=== PATIENT | female | born 1995 | race Two or more races ===

== ENCOUNTER 2020-09-15 07:06 | Inpatient (IN) | payer OTHER ==
[2020-09-15 08:54] VITALS: BMI 36.6
[2020-09-15] MEDS ORDERED: PROMETHAZINE HCL 25 MG/1 ML VIAL IVPUSH ONE (10:26)
[2020-09-15] MEDS ORDERED: BUTORPHANOL TARTRATE 1 MG/ML VIAL IVPB ONE (10:26)
[2020-09-15] MEDS ORDERED: DINOPROSTONE 10 MG VAGINAL SUPPOSITORY VG ONE (10:27)
[2020-09-15 10:45] LABS: BASO % 0.2 % (0-2.0); EOS % 0.4 % (0-4.5); HEMATOCRIT 33.7 % (32.4-45.2); HEMOGLOBIN 11.4 GM/dL (10.7-15.3); LYMPH % 14.9 % (8-40); MCH 28.9 pg (25.7-33.7); MCHC 33.9 g/dl (32.0-36.0); MEAN CELL VOLUME 85.1 fl (80-96); MEAN PLT VOLUME 9.5 fl (7.5-11.1); MONO % 3.9 % (3.8-10.2); NEUT % 80.6 % (42.8-82.8); PLATELET COUNT 223 K/MM3 (134-434); RBC 3.96 M/mm3 (3.60-5.2); RDW 13.1 % (11.6-15.6); WHITE BLOOD COUNT 11.2 K/mm3 (4.0-10.0)
[2020-09-15 10:57] LABS: INR 0.94 (0.83-1.09); PROTHROMBIN TIME (PATIENT) 11.6 SEC (9.7-13.0)
[2020-09-15 10:58] LABS: POTASSIUM 3.8 mmol/L (3.5-5.1)
[2020-09-15 10:59] LABS: ACTIVATED PTT 26.9 SECONDS (25.2-36.5)
[2020-09-15 11:00] LABS: BLOOD UREA NITROGEN 5.2 mg/dL (7-18); CALCIUM 8.4 mg/dL (8.5-10.1)
[2020-09-15 11:04] LABS: CREATININE 0.5 mg/dL (0.55-1.3)
[2020-09-15 11:58] LABS: HIV INTERPRETATION NEGATIVE (NEGATIVE)
[2020-09-15] MEDS: LACTATED RINGERS SOLUTION 1,000 ML IV SCH (16:22)
[2020-09-15] MEDS ORDERED: ONDANSETRON 4 MG/2 ML VIAL IVPB ONE (16:30)
[2020-09-15] MEDS ORDERED: ONDANSETRON 4 MG/2 ML VIAL ONE (16:31)
[2020-09-15] MEDS ORDERED: BUTORPHANOL TARTRATE 1 MG/ML VIAL IVPUSH ONE (22:30)
[2020-09-15] MEDS ORDERED: PROMETHAZINE HCL 25 MG/1 ML VIAL ONE (23:43)
[2020-09-16] MEDS ORDERED: OXYTOCIN 30 UNITS in 0.9% NS 30 UNIT/500 ML INFUS.BAG IVPB SCH (08:00)
[2020-09-16] MEDS ORDERED: OXYTOCIN 30 UNITS in 0.9% NS 30 UNIT/500 ML INFUS.BAG IVPB ONE (08:05)
[2020-09-16] MEDS ORDERED: BUTORPHANOL TARTRATE 2 MG/ML VIAL ONE (09:37)
[2020-09-16] MEDS ORDERED: PROMETHAZINE HCL 25 MG/1 ML VIAL ONE (09:37)
[2020-09-16] MEDS ORDERED: BUTORPHANOL TARTRATE 1 MG/ML VIAL IVPUSH ONE (09:44)
[2020-09-16] MEDS ORDERED: PROMETHAZINE HCL 25 MG/1 ML VIAL IVPUSH ONE (09:44)
[2020-09-16] MEDS: MISOPROSTOL 25 MCG TABLET (COMPOUNDED BY PHARMACY) PO SCH ×3 (09:52→17:10)
[2020-09-16] MEDS ORDERED: PCA PUMP NR ONE ×2 (13:40→19:01)
[2020-09-16] MEDS ORDERED: FENTANYL/BUPIVACAINE/NS/PF - PCEA - 50 ML DISP.SYRIN EP ONE ×3 (13:40→23:28)
[2020-09-16] MEDS ORDERED: NALOXONE HCL 0.4 MG/ML VIAL IVPUSH PRN (13:51)
[2020-09-16] MEDS ORDERED: BUPIVACAINE HCL/PF 0.25% (2.5MG/ML) 10 ML VIAL ONE (13:53)
[2020-09-16] MEDS: FENTANYL/BUPIVACAINE/NS/PF - PCEA - 50 ML DISP.SYRIN EP SCH (14:15)
[2020-09-16] MEDS: LACTATED RINGERS SOLUTION 1,000 ML IV SCH (17:10)
[2020-09-17] MEDS ORDERED: FENTANYL/BUPIVACAINE/NS/PF - PCEA - 50 ML DISP.SYRIN EP ONE ×3 (03:12→09:26)
[2020-09-17] MEDS ORDERED: BUPIVACAINE HCL/PF 0.25% (2.5MG/ML) 10 ML VIAL ONE ×2 (07:36→10:28)
[2020-09-17] MEDS ORDERED: OXYTOCIN 20 UNITS in 0.9% NS 20 UNIT/1,000 ML INFUS.BAG IV ONE (10:14)
[2020-09-17] MEDS ORDERED: OXYTOCIN 20 UNITS in 0.9% NS 40 UNIT/2,000 ML INFUS.BAG IV ONE (13:38)
[2020-09-17] MEDS ORDERED: DEXAMETHASONE SOD PHOSPHATE 4 MG/1 ML VIAL ONE (13:41)
[2020-09-17] MEDS ORDERED: morphine SULFATE/PF 0.5 MG/ML (2cc Syringe - QUVA) ONE (13:41)
[2020-09-17] MEDS ORDERED: ceFAZolin SODIUM 1 GM VIAL ONE (13:41)
[2020-09-17] MEDS ORDERED: ONDANSETRON 4 MG/2 ML VIAL ONE (13:41)
[2020-09-17] MEDS ORDERED: ONDANSETRON 4 MG/2 ML VIAL IVPUSH PRN (14:22)
[2020-09-17] MEDS ORDERED: ACETAMINOPHEN 1000 MG/100 ML VIAL (NON FORMULARY) IVPB PRN (14:23)
[2020-09-17] MEDS ORDERED: oxyCODONE HCL 5 MG TABLET PO PRN ×2 (15:41)
[2020-09-17] MEDS ORDERED: CITRIC ACID/SODIUM CITRATE 30 ML UNIT-DOSE CUP PO ONE (15:41)
[2020-09-17] MEDS ORDERED: BENZOCAINE 20% 57 GM BOTTLE TP PRN (15:41)
[2020-09-17] MEDS ORDERED: WITCH HAZEL 50% (TUCKS) 40 PAD/JAR PAD TP PRN (15:41)
[2020-09-17] MEDS ORDERED: BENZOCAINE 28 GM HEMORRHOIDAL OINTMENT TP PRN (15:41)
[2020-09-17] MEDS ORDERED: IBUPROFEN 800 MG/8 ML IJ IVPB PRN (15:41)
[2020-09-17] MEDS ORDERED: METHYLERGONOVINE MALEATE 0.2 MG/1 ML AMP IM PRN (15:41)
[2020-09-17] MEDS ORDERED: OXYTOCIN 20 UNITS in 0.9% NS 20 UNIT/1,000 ML INFUS.BAG IV SCH (15:45)
[2020-09-17 15:48] LABS: CORD HCO3 18.4 mmHg (20-29); CORD PCO2 43.6 mmHg (30-78); CORD pH 7.243 (7.14-7.44)
[2020-09-17 15:50] LABS: CORD BASE EXCESS -8.5 mmol/L (0-2); CORD HCO3 16.9 mmHg (20-29); CORD PCO2 34.9 mmHg (30-78); CORD pH 7.304 (7.14-7.44)
[2020-09-17] MEDS: FENTANYL/BUPIVACAINE/NS/PF - PCEA - 50 ML DISP.SYRIN EP SCH (22:00)
[2020-09-17] MEDS: LACTATED RINGERS SOLUTION 1,000 ML IV SCH (22:01)
[2020-09-18] MEDS: SIMETHICONE 80 MG TAB.CHEW (FP) PO PRN ×2 (05:40→21:19)
[2020-09-18] MEDS: ACETAMINOPHEN 325 MG TABLET (FP) PO PRN ×2 (05:40→21:22)
[2020-09-18] MEDS: IBUPROFEN 600 MG TABLET (FP) PO PRN ×2 (05:40→21:19)
[2020-09-18 08:46] LABS: BASO % 0.2 % (0-2.0); EOS % 0.2 % (0-4.5); HEMATOCRIT 30.4 % (32.4-45.2); HEMOGLOBIN 10.2 GM/dL (10.7-15.3); LYMPH % 7.9 % (8-40); MCH 28.9 pg (25.7-33.7); MCHC 33.6 g/dl (32.0-36.0); MONO % 5.8 % (3.8-10.2); NEUT % 85.9 % (42.8-82.8); PLATELET COUNT 205 K/MM3 (134-434); RBC 3.53 M/mm3 (3.60-5.2); RDW 13.3 % (11.6-15.6); WHITE BLOOD COUNT 17.9 K/mm3 (4.0-10.0)
[2020-09-18] MEDS: PRENATAL VITAMINS W/ FOLIC ACID TABLET (FP) PO SCH (09:53)
[2020-09-18] MEDS ORDERED: BISACODYL 10 MG SUPP.RECT RC PRN (15:41)
[2020-09-18] MEDS: SENNOSIDES/DOCUSATE COMBO (SENNA PLUS) TABLET (UD) PO PRN (21:19)
[2020-09-19] MEDS: PRENATAL VITAMINS W/ FOLIC ACID TABLET (FP) PO SCH (10:04)
[2020-09-19] MEDS: SIMETHICONE 80 MG TAB.CHEW (FP) PO PRN (21:00)
[2020-09-19] MEDS: SENNOSIDES/DOCUSATE COMBO (SENNA PLUS) TABLET (UD) PO PRN (21:01)
[2020-09-19] MEDS: ACETAMINOPHEN 325 MG TABLET (FP) PO PRN (21:01)
[2020-09-19] MEDS: IBUPROFEN 600 MG TABLET (FP) PO PRN (21:01)
[2020-09-20 09:24] VITALS: BP 120/72; PULSE 72; TEMP 97.3
[2020-09-20 09:40] LABS: BASO % 0.3 % (0-2.0); EOS % 1.2 % (0-4.5); HEMATOCRIT 29.9 % (32.4-45.2); HEMOGLOBIN 10.1 GM/dL (10.7-15.3); LYMPH % 17.4 % (8-40); MCH 29.2 pg (25.7-33.7); MCHC 33.8 g/dl (32.0-36.0); MEAN CELL VOLUME 86.2 fl (80-96); MEAN PLT VOLUME 9.1 fl (7.5-11.1); MONO % 4.5 % (3.8-10.2); NEUT % 76.6 % (42.8-82.8); PLATELET COUNT 241 K/MM3 (134-434); RBC 3.47 M/mm3 (3.60-5.2); RDW 13.2 % (11.6-15.6); WHITE BLOOD COUNT 9.4 K/mm3 (4.0-10.0)
[2020-09-20] MEDS: PRENATAL VITAMINS W/ FOLIC ACID TABLET (FP) PO SCH (10:02)
== END 2020-09-20 12:45 | disposition home or self-care (01) | DRG 788 ==
LOC: JLDR 07:06 → J3W 09-17 18:00
PROVIDERS: ADMIT Obstetrics & Gynecology; ATTEND Obstetrics & Gynecology
PROC: 3E0P7VZ Introduction of Hormone into Female Reproductive, Via Natural or Artificial Opening (ICD-10-PCS; 2020-09-15)
PROC: 3E033VJ Introduction of Other Hormone into Peripheral Vein, Percutaneous Approach (ICD-10-PCS; 2020-09-16)
PROC: 0U7C7ZZ Dilation of Cervix, Via Natural or Artificial Opening (ICD-10-PCS; 2020-09-16)
PROC: 10D00Z1 Extraction of Products of Conception, Low, Open Approach (ICD-10-PCS; principal; 2020-09-17)
DX: O48.0 Post-term pregnancy (principal); O61.0 Failed medical induction of labor; O32.4XX0 Maternal care for high head at term, not applicable or unspecified; O99.214 Obesity complicating childbirth; E66.9 Obesity, unspecified; O69.81X0 Labor and delivery complicated by cord around neck, without compression, not applicable or unspecified; Z3A.40 40 weeks gestation of pregnancy; Z37.0 Single live birth
CPT/HCPCS: 36415; 36600; 80048; 82803; 85025; 85610; 85730; 86780; 86850; 86900; 86901; 87389; 88307-TC

== ENCOUNTER 2021-10-03 03:17 | Emergency (ER) | payer OTHER ==
[2021-10-03 03:33] VITALS: BP 125/85; PULSE 98; TEMP 97.7; BMI 39.4
== END 2021-10-03 06:16 | disposition home or self-care (01) ==
LOC: JER 03:17
DX: K59.01 Slow transit constipation (principal)
CPT/HCPCS: 99281-25

== ENCOUNTER 2022-11-22 05:40 | Inpatient (IN) | payer OTHER ==
[~2022-11-22 05:40] MED LIST: CITRIC ACID/SODIUM CITRATE 30 ML UNIT-DOSE CUP PO ONE; ELECTROLYTE-148 SOLN 500 ML IV ONE
[2022-11-22] MEDS ORDERED: ELECTROLYTE-148 SOLN 500 ML IV ONE (06:10)
[2022-11-22 06:27] VITALS: BMI 38.4
[2022-11-22] MEDS ORDERED: morphine SULFATE/PF 1 MG/2 ML (2cc Syringe - QUVA) EP ONE (07:44)
[2022-11-22] MEDS ORDERED: ONDANSETRON 4 MG/2 ML VIAL IVPUSH PRN (07:44)
[2022-11-22] MEDS ORDERED: ACETAMINOPHEN 325 MG TABLET (FP) PO PRN ×2 (07:44→13:28)
[2022-11-22] MEDS ORDERED: IBUPROFEN 600 MG TABLET (FP) PO PRN ×2 (07:44→13:28)
[2022-11-22] MEDS ORDERED: ceFAZolin SODIUM 1 GM VIAL ONE (07:51)
[2022-11-22] MEDS ORDERED: SODIUM CHLORIDE 0.9% P/F 10 ML VIAL IJ ONE (07:51)
[2022-11-22] MEDS ORDERED: OXYTOCIN 10 UNITS/ML VIAL ONE (07:59)
[2022-11-22] MEDS ORDERED: PHENYLEPHRINE HCL 10 MG/1 ML SINGLE DOSE VIAL ONE (07:59)
[2022-11-22] MEDS ORDERED: LIGASURE IMPACT TP ONE (08:12)
[2022-11-22] MEDS ORDERED: MIDAZOLAM HCL 2 MG/2 ML SINGLE DOSE VIAL ONE (09:25)
[2022-11-22] MEDS ORDERED: FENTANYL CITRATE/PF 50 MCG/ML VIAL ONE (09:26)
[2022-11-22 09:43] LABS: CORD HCO3 24.4 mmHg (20-29); CORD PCO2 57.6 mmHg (30-78); CORD pH 7.245 (7.14-7.44)
[2022-11-22 09:49] LABS: CORD BASE EXCESS -2.2 mmol/L (0-2); CORD HCO3 23.1 mmHg (20-29); CORD PCO2 41.9 mmHg (30-78); CORD pH 7.36 (7.14-7.44)
[2022-11-22] MEDS ORDERED: OXYTOCIN 20 UNITS in 0.9% NS 20 UNIT/1,000 ML INFUS.BAG IV ONE (10:06)
[2022-11-22] MEDS ORDERED: ELECTROLYTE-148 SOLN 1,000 ML IV SCH (10:15)
[2022-11-22] MEDS ORDERED: METHYLERGONOVINE MALEATE 0.2 MG/1 ML AMP IM PRN (13:28)
[2022-11-22] MEDS ORDERED: BENZOCAINE 28 GM HEMORRHOIDAL OINTMENT TP PRN (13:28)
[2022-11-22] MEDS ORDERED: SENNOSIDES/DOCUSATE COMBO (SENNA PLUS) TABLET (UD) PO PRN (13:28)
[2022-11-22] MEDS ORDERED: WITCH HAZEL 50% (TUCKS) 40 PAD/JAR PAD TP PRN (13:28)
[2022-11-22] MEDS ORDERED: BENZOCAINE 20% 57 GM BOTTLE TP PRN (13:28)
[2022-11-22] MEDS ORDERED: IBUPROFEN 800 MG/8 ML IJ IVPB PRN (13:28)
[2022-11-22] MEDS: OXYTOCIN 20 UNITS in 0.9% NS 20 UNIT/1,000 ML INFUS.BAG IV SCH ×2 (16:00→18:00)
[2022-11-22] MEDS: CEFAZOLIN SODIUM 2 GM VIAL IVPB SCH ×2 (16:00→17:58)
[2022-11-22] MEDS: CLINDAMYCIN 900 MG PREMIX IVPB 900 MG/50 ML BAG IVPB SCH ×2 (16:00→17:57)
[2022-11-22 21:02] VITALS: RESP 18
[2022-11-23] MEDS ORDERED: oxyCODONE HCL 5 MG TABLET PO PRN ×2 (01:28)
[2022-11-23] MEDS ORDERED: CEFAZOLIN SODIUM 2 GM VIAL IVPB SCH (02:00)
[2022-11-23] MEDS: SIMETHICONE 80 MG TAB.CHEW (FP) PO PRN (02:44)
[2022-11-23] MEDS: CLINDAMYCIN 900 MG PREMIX IVPB 900 MG/50 ML BAG IVPB SCH ×2 (03:24→09:11)
[2022-11-23] MEDS: CEFAZOLIN SODIUM 2 GM in DEXTROSE 5%-WATER 100 ML IVPB SCH ×2 (03:41→11:11)
[2022-11-23 07:13] LABS: BASO % 0.4 % (0-2.0); EOS % 0.7 % (0-4.5); HEMATOCRIT 33.7 % (32.4-45.2); HEMOGLOBIN 11.1 GM/dL (10.7-15.3); LYMPH % 11.8 % (8-40); MCH 27.9 pg (25.7-33.7); MEAN CELL VOLUME 84.5 fl (80-96); MEAN PLT VOLUME 9.2 fl (7.5-11.1); NEUT % 81.1 % (42.8-82.8); PLATELET COUNT 202 10^3/uL (134-434); RBC 3.99 M/mm3 (3.60-5.2); RDW 13.8 % (11.6-15.6); WHITE BLOOD COUNT 14.2 K/mm3 (4.0-10.0)
[2022-11-23] MEDS: PRENATAL VITAMINS W/ FOLIC ACID TABLET (FP) PO SCH (09:11)
[2022-11-23] MEDS: ENOXAPARIN NA (PORCINE) 40 MG/0.4 ML DISP.SYRIN SQ SCH (09:11)
[2022-11-23] MEDS ORDERED: BISACODYL 10 MG SUPP.RECT RC PRN (13:28)
[2022-11-24] MEDS: SIMETHICONE 80 MG TAB.CHEW (FP) PO PRN (09:39)
[2022-11-24] MEDS: PRENATAL VITAMINS W/ FOLIC ACID TABLET (FP) PO SCH (09:39)
[2022-11-24] MEDS: ENOXAPARIN NA (PORCINE) 40 MG/0.4 ML DISP.SYRIN SQ SCH (09:40)
[2022-11-25] MEDS: OXYTOCIN 20 UNITS in 0.9% NS 20 UNIT/1,000 ML INFUS.BAG IV SCH (03:41)
[2022-11-25] MEDS: PRENATAL VITAMINS W/ FOLIC ACID TABLET (FP) PO SCH (09:32)
[2022-11-25] MEDS: ENOXAPARIN NA (PORCINE) 40 MG/0.4 ML DISP.SYRIN SQ SCH (09:32)
[2022-11-25 09:38] LABS: BASO % 0.5 % (0-2.0); EOS % 2.2 % (0-4.5); HEMATOCRIT 29.9 % (32.4-45.2); HEMOGLOBIN 9.7 GM/dL (10.7-15.3); LYMPH % 24.2 % (8-40); MCH 27.9 pg (25.7-33.7); MCHC 32.4 g/dl (32.0-36.0); MEAN CELL VOLUME 86.1 fl (80-96); MONO % 5.4 % (3.8-10.2); NEUT % 67.7 % (42.8-82.8); PLATELET COUNT 240 10^3/uL (134-434); RBC 3.47 M/mm3 (3.60-5.2); RDW 13.7 % (11.6-15.6); WHITE BLOOD COUNT 10.5 K/mm3 (4.0-10.0)
[2022-11-25 10:01] VITALS: BP 112/72; PULSE 82; TEMP 98.1
== END 2022-11-25 12:05 | disposition home or self-care (01) | DRG 540 ==
LOC: JLDR 05:40 → J3W 11:20
PROVIDERS: ADMIT Obstetrics & Gynecology; ATTEND Obstetrics & Gynecology
PROC: 10D00Z1 Extraction of Products of Conception, Low, Open Approach (ICD-10-PCS; principal; 2022-11-22)
PROC: 0UT70ZZ Resection of Bilateral Fallopian Tubes, Open Approach (ICD-10-PCS; 2022-11-22)
DX: O34.211 Maternal care for low transverse scar from previous cesarean delivery (principal); Z3A.39 39 weeks gestation of pregnancy; Z37.0 Single live birth; Z30.2 Encounter for sterilization
CPT/HCPCS: 36415; 36600; 80048; 82803; 85025; 85610; 85730; 86780; 86850; 86900; 86901; 87635; 88302-TC; 88307-TC; 94010

== ENCOUNTER 2023-04-08 00:28 | Emergency (ER) | payer OTHER ==
[2023-04-08 00:33] VITALS: BP 119/76; RESP 20; TEMP 98.9; BMI 38.9
[2023-04-08] MEDS ORDERED: ACETAMINOPHEN 1000 MG/100 ML BAG IVPB ONE (00:55)
[2023-04-08] MEDS ORDERED: SODIUM CHLORIDE 0.9% 500 ML INFUS.BAG IV ONE (00:55)
[2023-04-08] MEDS ORDERED: MECLIZINE HCL 25 MG TABLET (FP) PO ONE (00:56)
[2023-04-08] MEDS ORDERED: ONDANSETRON 4 MG/2 ML VIAL IVPB ONE (01:07)
[2023-04-08] MEDS ORDERED: ONDANSETRON 4 MG/2 ML VIAL ONE (01:10)
[2023-04-08] MEDS ORDERED: MECLIZINE HCL 25 MG TABLET (FP) ONE (01:12)
[2023-04-08] MEDS ORDERED: ACETAMINOPHEN INJECTION 100 ML IVPB ONE (01:13)
[2023-04-08 01:34] LABS: BASO % 0.5 % (0-2.0); EOS % 0.5 % (0-4.5); HEMOGLOBIN 11.2 GM/dL (10.7-15.3); LYMPH % 9.7 % (8-40); MCH 27.2 pg (25.7-33.7); MEAN CELL VOLUME 82.6 fl (80-96); MEAN PLT VOLUME 8.4 fl (7.5-11.1); MONO % 4.6 % (3.8-10.2); NEUT % 84.7 % (42.8-82.8); PLATELET COUNT 305 10^3/uL (134-434); RBC 4.12 M/mm3 (3.60-5.2); RDW 12.9 % (11.6-15.6); WHITE BLOOD COUNT 14.1 K/mm3 (4.0-10.0)
[2023-04-08 01:41] LABS: EPI CELLS >36 /uL (0-25.1); HCG,QUALITATIVE URINE Negative; HYALINE CASTS 1 /uL (0-3.1); PH,URINE 5.5 (5.0-8.0); URINE APPEARANCE CLEAR; URINE BACTERIA 1877 /uL (0-1359); URINE BILIRUBIN NEGATIVE (NEGATIVE); URINE COLOR YELLOW; URINE GLUCOSE (UA) NEGATIVE (NEGATIVE); URINE KETONE TRACE (NEGATIVE); URINE LEUK ESTERASE NEGATIVE (NEGATIVE); URINE NITRITE NEGATIVE (NEGATIVE); URINE PROTEIN NEGATIVE (NEGATIVE); URINE RBC 14 /uL (0-23.9); URINE UROBILINOGEN 0.2 mg/dL (0.2-1.0); URINE WBC 5 /uL (0-25.8)
[2023-04-08 01:49] LABS: POTASSIUM 4.1 mmol/L (3.5-5.1)
[2023-04-08 01:51] LABS: CALCIUM 9.7 mg/dL (8.5-10.1)
[2023-04-08 01:52] LABS: BLOOD UREA NITROGEN 10.3 mg/dL (7-18)
[2023-04-08 01:55] LABS: CREATININE 0.6 mg/dL (0.55-1.3)
[2023-04-08 01:56] LABS: BILIRUBIN,TOTAL 0.3 mg/dL (0.2-1); TOT PROT 7.5 g/dl (6.4-8.2)
[2023-04-08 04:49] VITALS: PULSE 88
== END 2023-04-08 04:49 | disposition home or self-care (01) ==
LOC: JER 00:28
PROC: 3E033NZ Introduction of Analgesics, Hypnotics, Sedatives into Peripheral Vein, Percutaneous Approach (ICD-10-PCS; principal; 2023-04-08)
PROC: 3E033GC Introduction of Other Therapeutic Substance into Peripheral Vein, Percutaneous Approach (ICD-10-PCS; 2023-04-08)
DX: R10.30 Lower abdominal pain, unspecified (principal); N83.201 Unspecified ovarian cyst, right side
CPT/HCPCS: 36415; 74177-TC; 80053; 81003; 83690; 84703; 85025; 87086; 99285-25